=== PATIENT | female | born 1980 | race Caucasian/White ===

== ENCOUNTER 2022-10-30 15:23 | Inpatient (IN) | payer MEDICARE, MEDICAID ==
[2022-10-30] MEDS ORDERED: MAG HYDROX/AL HYDROX/SIMETH 30 ML CUP PO PRN (18:57)
[2022-10-30] MEDS ORDERED: ACETAMINOPHEN TAB 325 MG TAB PO PRN (18:57)
[2022-10-30] MEDS ORDERED: MAGNESIUM HYDROXIDE 2,400 MG/30 ML CUP PO PRN (18:57)
[2022-10-30] MEDS ORDERED: LORazepam 2 MG/ML INJ IM PRN (18:59)
[2022-10-30] MEDS ORDERED: flUPHENAZine 2.5 MG/ML (MDV) 10 ML VIAL IM PRN (18:59)
[2022-10-30] MEDS ORDERED: diazePAM 5 MG TAB PO PRN (18:59)
[2022-10-30] MEDS ORDERED: IBUPROFEN 800 MG TAB PO PRN (18:59)
[2022-10-30] MEDS: LORazepam 1 MG TAB PO PRN (21:10)
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
[2022-10-31] MEDS: NICOTINE 14MG/24HR PATCH TRANSDERM SCH (09:11)
[2022-10-31] MEDS ORDERED: traZODone HCL 50 MG TAB PO PRN (13:12)
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
[2022-11-01] MEDS: PALIPERIDONE 3 MG TAB.ER.24 PO SCH ×3 (00:45→20:15)
[2022-11-01] MEDS: NICOTINE 14MG/24HR PATCH TRANSDERM SCH (08:41)
--- NOTE | 2022-11-01 13:02 | P.PN ---
Progress Note - Text Interval history: was laughing about the elopement yesterday. States that she went to a concert in [facility]. States that when midnight [place], she decided to come back to the hospital because she did not know where else she could go. She states that she did the right thing by coming back.. At this time patient denies any suicidal or homicidal ideations intent or plan. Denies any Auditory or visual hallucinations. Patient denies any side effects from the medications and has been compliant with meds. Mental status exam: General Appearance: [Patient appears to be stated age is alert, directable, and cooperative.] smiling throughout the interview Behavior: [No agitated behavior. Patient is calm and directable] Speech: Patient's speech is fluent and nonpressured. Mood/Affect: Mood is "good", affect is congruent and constricted. smiling throughout the interview. Suicidality/Homicidality: Patient denies having any suicidal or homicidal ideation intent or plan. Perceptions: Patient denies any auditory or visual hallucinations. Though content/process: [There is no evidence of any delusional thought content and thought process is linear and goal-directed.] Memory and concentration: AOX3, grossly intact for the purposes of this session Judgment and insight: poor Assessment/Plan: Continue with current diagnosis. Patient continues to meet criteria for inpatient psychiatric admission for symptom stabilization and safety.[Patient will be maintained on current psychotropic medication regimen.] Monitor for medication compliance and for any psychotropic medication side effects. Will continue to monitor ongoing response to treatment. Encouraged participation in milieu.
[2022-11-01] MEDS: LORazepam 1 MG TAB PO PRN (20:16)
[2022-11-02] MEDS: PALIPERIDONE 3 MG TAB.ER.24 PO SCH (08:46)
[2022-11-02] MEDS: NICOTINE 14MG/24HR PATCH TRANSDERM SCH (08:48)
--- NOTE | 2022-11-02 12:12 | P.PN ---
Progress Note - Text Interval history: Patient was seen in her room and was directable and agreeable to speak with keno writer/runner. States that she feels "tired" states that she felt irritable at the end of the day yesterday. He wants to go home.. At this time patient denies any suicidal or homicidal ideations intent or plan. Denies any Auditory or visual hallucinations. Patient denies any side effects from the medications and has been compliant with meds. Mental status exam: General Appearance: [Patient appears to be stated age is alert, directable, and cooperative.] Behavior: Laughing inappropriately at times Speech: Patient's speech is fluent and nonpressured. Mood/Affect: Constricted affect, laughing inappropriately at times Suicidality/Homicidality: Patient denies having any suicidal or homicidal ideation intent or plan. Perceptions: Patient denies any auditory or visual hallucinations. Though content/process: [There is no evidence of any delusional thought content and thought process is linear and goal-directed.] Memory and concentration: AOX3, grossly intact for the purposes of this session Judgment and insight: Poor Assessment/Plan: Continue with current diagnosis. Patient continues to meet criteria for inpatient psychiatric admission for symptom stabilization and safety. Increase Invega to 6 mg twice a day Monitor for medication compliance and for any psychotropic medication side effects. Will continue to monitor ongoing response to treatment. Encouraged participation in milieu.
[2022-11-02] MEDS: CALCIUM CARBONATE 500 MG CHEWABLE PO PRN ×2 (15:11→20:09)
[2022-11-02] MEDS: PALIPERIDONE 6 MG TAB.ER.24 PO SCH (20:25)
[2022-11-03] MEDS: PALIPERIDONE 6 MG TAB.ER.24 PO SCH (09:36)
--- NOTE | 2022-11-03 10:23 | P.PN ---
Progress Note - Text Progress Note Date: 11/03/22 Interval History: Patient was seen sitting in a group today and was directable and agreeable to speak with senior writer in the office. Patient when entering senior writer's office stated "this room smells musty" and was fairly preoccupied with different things about the room today. she was looking at the door at times and kept on telling senior writer "Im sorry". she claims that she did not sleep well last night. She is denying any depression or anxiety. She does appear to be fairly paranoid, hostile senior writer's name. She was alert and oriented to place and date today and also name. Claims that her appetite is fair, she states that she has not spoken with her personal injury attorney today. Continues to act strange/bizarre during the interaction. At this time patient denies any suicidal or homical ideations, intent or plan. Patient denies any auditory, visual hallucinations and denies any paranoia or delusions. Patient did claim that she had some vision changes after taking the invega and explained "seeing weird colors when I was looking through a cup". Mental Status Exam: General Appearance: [Patient appears to be mildly overweight, stated age is alert, directable, and cooperative.] Behavior: [Patient is calmly seated without any agitated behavior.] bizarre and mildly paranoid. Speech: Patient's speech is fluent and nonpressured. Mood/Affect: Mood is improving mildly, affect is congruent and constricted. Suicidality/Homicidality: Patient denies having any suicidal or homicidal ideation intent or plan. Perceptions: Patient denies any visual hallucinations [and denies any auditory hallucinations] Though content/process: Focused on aspects of the room, looking at the door, bizarre at times, mildly paranoid. Her insight. Memory and concentration: AOX3, grossly intact for the purposes of this session Judgment and insight: Poor Assessment Bipolar disorder, severe, manic episode with psychotic features Cannabis use disorder Nicotine dependence PLAN: -Patient is admitted under involuntary status to MHU for stabilization of psychiatric symptoms and safety. Patient has not signed adult voluntary form and medication consent and is placed in patient's chart. A second certification was completed and along with petition will be filed for court. -Medications : decrease paliperidone 9 mg qhs for psychosis/mood stabilization. trazodone prn for sleep. consider switching to FGA such as prolixin if patient continues to not respond -Ativan and prolixin PRN for agitation/aggression -NRT - nicotine patch -SW on board for discharge planning. Encourage patient to participate in groups to work on coping skills. Will await deferral and court date.
[2022-11-03] MEDS: LORazepam 1 MG TAB PO PRN (13:10)
[2022-11-03] MEDS: PALIPERIDONE 3 MG TAB.ER.24 PO SCH ×2 (21:08→21:09)
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
[2022-11-05 07:11] VITALS: RESP 14
[2022-11-05] MEDS ORDERED: diphenhydrAMINE 50 MG CAP PO PRN (11:57)
[2022-11-05] MEDS ORDERED: traZODone HCL 50 MG TAB PO PRN (19:50)
--- NOTE | 2022-11-05 19:58 | P.PN ---
Progress Note - Text Progress Note Date: 11/05/22 Interval History: Patient was seen today wandering the hallways and socializing with other patie nts on the unit. she has been going to groups more and becoming more organized in her behvrs. Patient continues to ramble at times, is illogical, improving mildly. attention span improving, not repsonding to internal stimuli. Patient claims that her mood and anxiety is improving. States that she slept better last night. She is denying any depression or anxiety. Claims that her appetite is fair. less bizarre today during interaction and has been going to groups. At this time patient denies any suicidal or homical ideations, intent or plan. Patient denies any auditory, visual hallucinations and denies any paranoia or delusions. Mental Status Exam: General Appearance: Patient appears to be mildly overweight, stated age is alert, directable, and distracted, improving Behavior: Patient is calmly seated without any agitated behavior. less bizarre, not distracted Speech: Patient's speech is fluent and nonpressured. hesitatn, rambling. Mood/Affect: Mood is improving mildly, affect is congruent and constricted, improving mildly Suicidality/Homicidality: Patient denies having any suicidal or homicidal ideation intent or plan. Perceptions: Patient denies any visual hallucinations and denies any auditory hallucinations Though content/process: more goal oriented and organized, no delusions/paranoia. Memory and concentration: AOX3, grossly intact for the purposes of this session Judgment and insight: Poor, improving mildly Assessment: Bipolar disorder, severe, manic episode with psychotic features Cannabis use disorder Nicotine dependence PLAN: -Patient is admitted under involuntary status to MHU for stabilization of psychiatric symptoms and safety. Patient has not signed adult voluntary form and medication consent and is placed in patient's chart. -Medications : continue Prolixin PO 3 mg bid for psychosis/mood stabilization. trazodone 50 mg prn qhs for sleep. -Ativan and prolixin PRN for agitation/aggression -NRT - nicotine patch -SW on board for discharge planning. Encourage patient to participate in groups to work on coping skills. patient deferred with her insole rasper. likely discharge on thursday, SW arranging the ride back to her home.
[2022-11-05] MEDS ORDERED: traZODone HCL 50 MG TAB PO SCH (21:00)
--- NOTE | 2022-11-06 11:27 | P.PN ---
Progress Note - Text Progress Note Date: 11/06/22 Interval History: Patient was seen today wandering the hallways. Patient continues to be seen s ocializing with other patients on the unit. she has been going to groups more. She claims that she is doing "all right" and denied any overnight complaints. States that she slept fairly and has been taking her medications. She is not needing the trazodone at this time. She states that she is looking forward to going home and continues to ask about her "ride home". He is more goal oriented today. attention span improving, not repsonding to internal stimuli. Patient claims that her mood and anxiety is improving. Claims that her appetite is fair. At this time patient denies any suicidal or homical ideations, intent or plan. Patient denies any auditory, visual hallucinations and denies any paranoia or delusions. Patient has been taking her medications, denying any side effects. Mental Status Exam: General Appearance: Patient appears to be mildly overweight, stated age is alert, directable, and distracted, improving Behavior: Patient is calmly seated without any agitated behavior. More cooperative. Speech: Patient's speech is fluent and nonpressured. Mood/Affect: Mood is improving mildly, affect is congruent and constricted, improving mildly Suicidality/Homicidality: Patient denies having any suicidal or homicidal ideation intent or plan Perceptions: Patient denies any visual hallucinations and denies any auditory hallucinations Though content/process: more goal oriented and organized, no delusions/paranoia Memory and concentration: AOX3, grossly intact for the purposes of this session Judgment and insight: improving mildly Assessment: Bipolar disorder, severe, manic episode with psychotic features Cannabis use disorder Nicotine dependence PLAN: -Patient is admitted under involuntary status to MHU for stabilization of psychiatric symptoms and safety. Patient has not signed adult voluntary form and medication consent and is placed in patient's chart. -Medications : continue Prolixin PO 3 mg bid for psychosis/mood stabilization. trazodone 50 mg prn qhs for sleep. -Ativan and prolixin PRN for agitation/aggression -NRT - nicotine patch -SW on board for discharge planning. Encourage patient to participate in groups to work on coping skills. 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 likely discharge tomorrow, SW arranging the ride back to her home tomorrow.
[2022-11-07 07:00] VITALS: BP 142/64; PULSE 56; TEMP 97.2
[2022-11-07 10:05] LABS: Basophils % (A) 0 %; Eosinophils # (A) 0.2 k/uL (0-0.7); Eosinophils % (A) 2 %; HGB 12.2 gm/dL (11.4-16.0); Hypochromasia Slight; Lymphocytes # (A) 2.3 k/uL (1.0-4.8); Lymphocytes % (A) 24 %; MCH 27.4 pg (25.0-35.0); MCV 85.6 fL (80.0-100.0); Mean Platelet Volume 8.1; Monocytes # (A) 0.6 k/uL (0-1.0); Monocytes % (A) 6 %; Neutrophils # (A) 6.4 k/uL (1.3-7.7); Neutrophils % (A) 66 %; Platelet Count 415 k/uL (150-450); RBC 4.44 m/uL (3.80-5.40); RDW 14.5 % (11.5-15.5); WBC 9.7 k/uL (3.8-10.6)
[2022-11-07 10:20] LABS: ALT 23 U/L (4-34); AST 24 U/L (14-36); African American GFR (CKD) >90 (>60 ml/min/1.73 sqM); Albumin 4.1 g/dL (3.5-5.0); Alkaline Phosphatase 62 U/L (38-126); Anion Gap 11 mmol/L; Blood Urea Nitrogen 13 mg/dL (7-17); Carbon Dioxide 21 mmol/L (22-30); Chloride 109 mmol/L (98-107); Glucose 118 mg/dL (74-99); Non-African American GFR(CKD) >90 (>60 ml/min/1.73 sqM); Potassium 4.4 mmol/L (3.5-5.1); Sodium 141 mmol/L (137-145); Total Bilirubin 0.4 mg/dL (0.2-1.3); Total Protein 6.8 g/dL (6.3-8.2)
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
[2022-11-07 20:07] LABS: Chol/HDL Ratio 4.97 Ratio; LDL Cholesterol,Calculated 91.4 mg/dL (0.0-131.0)
== END 2022-11-07 14:22 | disposition home or self-care (01) | DRG 885 ==
LOC: 3MHU 20:24
PROVIDERS: ADMIT Psychiatry & Neurology Psychiatry; ATTEND Psychiatry & Neurology Psychiatry
DX: F31.12 Bipolar disorder, current episode manic without psychotic features, moderate (principal); F12.90 Cannabis use, unspecified, uncomplicated; F17.210 Nicotine dependence, cigarettes, uncomplicated; F41.9 Anxiety disorder, unspecified; Z79.899 Other long term (current) drug therapy
CPT/HCPCS: 80053; 80061; 83036; 85025

== ENCOUNTER 2022-10-31 22:36 | Emergency (ER) | payer MEDICARE, MEDICAID ==
[2022-10-31 22:47] VITALS: TEMP 98.6
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
[2022-10-31 23:32] LABS: Amphetamine Screen,Urine Not Detected (NotDetected); Barbiturate Screen,Urine Not Detected (NotDetected); Benzodiazepines Screen,Urine Detected (NotDetected); Cocaine Screen,Urine Not Detected (NotDetected); Methadone Screen, Urine Not Detected (NotDetected); Opiate Screen,Urine Not Detected (NotDetected); Oxycodone Screen, Urine Not Detected (NotDetected); Phencyclidine Screen,Urine Not Detected (NotDetected); Tricyclic Antidepressant,Urine Not Detected (NotDetected); Urn Cannabinoid Scrn Detected (NotDetected)
[2022-11-01 00:33] VITALS: BP 148/78; PULSE 90; RESP 16
== END 2022-11-01 00:38 | disposition other institution (70) ==
LOC: EC 22:36
DX: F29 Unspecified psychosis not due to a substance or known physiological condition (principal); F17.200 Nicotine dependence, unspecified, uncomplicated; F12.90 Cannabis use, unspecified, uncomplicated; Z20.822 Contact with and (suspected) exposure to COVID-19; Z88.8 Allergy status to other drugs, medicaments and biological substances
CPT/HCPCS: 80306; 82075; 87635; 99285